=== PATIENT | male | born 1985 | race Caucasian/White ===

== ENCOUNTER 2017-05-23 18:27 | Outpatient (CLI) | payer SELFPAY | END 2017-05-23 18:28 | disposition EMS.NT | LOC: EMS 18:27 | PROVIDERS: ATTEND Surgery | DX: R50.9 Fever, unspecified (principal) ==

== ENCOUNTER 2017-05-23 20:57 | Emergency (ER) | payer SELFPAY ==
[2017-05-23] MEDS ORDERED: SODIUM CHLORIDE 0.9% 1,000 ML IV ONE (21:44)
[2017-05-23 21:57] LABS: BASOPHILS % (AUTO) 0.2 %; HCT - HEMATOCRIT 45.1 % (42.0-52.0); HGB - HEMOGLOBIN 15.3 g/dL (14.0-18.0); LYMPHOCYTES # (AUTO) 0.4 10^3/uL (1.5-3.5); LYMPHOCYTES % (AUTO) 2.3 %; MEAN CORPUSCULAR HEMOGLOBIN 27.9 pg (27.0-31.0); MEAN CORPUSCULAR HGB CONC 33.8 g/dL (32.0-36.0); MEAN CORPUSCULAR VOLUME 82.4 fL (80.0-94.0); MONOCYTES # (AUTO) 0.6 10^3/uL (0.0-1.0); MONOCYTES % (AUTO) 3.7 %; NEUTROPHILS # (AUTO) 14.7 10^3/uL (1.5-6.6); NEUTROPHILS % (AUTO) 93.8 %; RED BLOOD COUNT 5.47 10^6/uL (4.70-6.10); RED CELL DISTRIBUTION WIDTH 12.7 % (12.0-15.0); UNCORRECTED WHITE BLOOD COUNT 15.7 x10^3/uL; WHITE BLOOD COUNT 15.7 x10^3/uL (4.8-10.8)
[2017-05-23 22:05] LABS: BILIRUBIN,URINE NEGATIVE (NEGATIVE); PH,URINE 5.5 PH (5.0-7.5)
[2017-05-23 22:07] LABS: UA CHARGE (STRIP ONLY) YES; UR CULTURE IF IND NOT INDICATED
[2017-05-23 22:13] LABS: CALCIUM 9.4 mg/dL (8.5-10.3); CREATININE 1.1 mg/dL (0.6-1.2); POTASSIUM 3.7 mmol/L (3.5-5.0)
[2017-05-23 22:30] VITALS: BP 120/70
--- NOTE | 2017-05-23 22:39 | ED Physician Documentation ---
History of Present Illness - Stated complaint Stated Complaint: OVER HEATED - Chief complaint Chief Complaint: General - History obtained from History obtained from: Patient, Family - History of Present Illness Timing: Today - Additonal information Additional information: Patient is a 31 year old male with no significant past medical history who is presenting to the emergency department for heat exhaustion. 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 patient states that he tried to stay hydrated but he became overheated. Patient came inside out of the sun but persisted to be overheated with temperatures above 100 F. Patient complained of mild nausea and generalized weakness. Review of Systems Constitutional: reports: Fever, Myalgias, Fatigue. denies: Chills Eyes: denies: Loss of vision, Decreased vision Ears: denies: Ear pain, Drainage/discharge Nose: denies: Rhinorrhea / runny nose, Congestion Throat: denies: Sore throat Cardiac: denies: Chest pain / pressure, Palpitations Respiratory: denies: Cough GI: reports: Nausea. denies: Vomiting, Constipation, Diarrhea : denies: Dysuria, Unable to Void Skin: denies: Rash, Lesions Musculoskeletal: reports: Back pain. denies: Extremity pain, Joint pain Neurologic: reports: Generalized weakness. denies: Focal weakness, Numbness, Difficulty speaking, Syncope, Seizure, Head injury, LOC Psychiatric: denies: Depressed Immunocompromised: denies: Immunocompromised PD PAST MEDICAL HISTORY - Past Medical History Past Medical History: No - Past Surgical History Past Surgical History: No - Allergies Allergies/Adverse Reactions: Allergies Allergy/AdvReac Type Severity Reaction Status Date / Time No Known Drug Allergies Allergy Verified 05/23/17 21:02 - Social History Does the pt smoke?: No Smoking Status: Never smoker Does the pt drink ETOH?: No Does the pt have substance abuse?: No PD ED PE NORMAL - Vitals Vital signs reviewed: Yes - General General: Alert and oriented X 3, Well developed/nourished - HEENT HEENT: Atraumatic, PERRL - Neck Neck: Supple, no meningeal sign - Cardiac Cardiac: No murmur - Respiratory Respiratory: No respiratory distress, Clear bilaterally - Abdomen Abdomen: Soft, Non tender, Non distended - Derm Derm: Normal color, No rash - Extremities Extremities: No deformity, No tenderness to palpate, No edema, No calf tenderness / cord - Neuro Neuro: Alert and oriented X 3, No motor deficit, No sensory deficit, Normal speech - Psych Psych: Normal mood, Normal affect PD ED PE EXPANDED - HEENT HEENT: Dry mucous membranes - Cardiac Cardiac: Tachy Results - Vitals Vitals: Vital Signs - 24 hr 05/23/17 05/23/17 21:00 22:30 Temperature 37.6 C H 37.4 C Heart Rate 106 H 97 Respiratory 17 19 Rate Blood Pressure 144/76 H 120/70 O2 Saturation 99 100 Oxygen O2 Source Room air - Labs Labs: Laboratory Tests 05/23/17 05/23/17 05/23/17 21:15 21:50 21:50 WBC 15.7 H RBC 5.47 Hgb 15.3 Hct 45.1 MCV 82.4 MCH 27.9 MCHC 33.8 RDW 12.7 Plt Count 219 MPV 8.0 Neut # 14.7 H Lymph # 0.4 L [place] # 0.6 Eos # 0.0 Baso # 0.0 Absolute Nucleated RBC 0.01 Nucleated RBCs 0.0 Manual Slide Review Indicated WBC Morphology NORMAL APPEARANCE Platelet Estimate NORMAL (130-450,000) Platelet Morphology NORMAL APPEARANCE RBC Morph Micro Appear NORMAL APPEARANCE Sodium 133 L Potassium 3.7 Chloride 97 L Carbon Dioxide 25 Anion Gap 11.0 BUN 18 Creatinine 1.1 Estimated GFR (MDRD) 79 L Glucose 118 H Calcium 9.4 Total Creatine Kinase 102 Urine Color YELLOW Urine Clarity CLEAR Urine pH 5.5 Ur Specific [place] 1.010 Urine Protein NEGATIVE Urine Glucose (UA) NEGATIVE Urine Ketones 15 H Urine Occult Blood NEGATIVE Urine Nitrite NEGATIVE Urine Bilirubin NEGATIVE Urine Urobilinogen 0.2 (NORMAL) Ur Leukocyte Esterase NEGATIVE Ur Microscopic Review NOT INDICATED Urine Culture Comments NOT INDICATED PD MEDICAL DECISION MAKING - ED course Complexity details: reviewed results, re-evaluated patient, considered differential, d/w patient, d/w family ED course: Patient was seen and examined at bedside. IV access was gained and labs were drawn. Patient was treated with a fluid bolus. patient's labs revealed mild dehydration but patient responded well to IV fluids. Patient's tachycardia resolved and patient was feeling much better. patient required no further work up and was stable for discharge with outpatient follow up. Departure - Departure Disposition: 01 Home, Self Care Clinical Impression: Dehydration Condition: Good Instructions: ED Dehydration Follow-Up: primary,care provider [Other] Comments: Your symptoms today are being caused by dehydration. It is important that you stay well hydrated with water and electrolyte solutions. You should also avoid the heat at mid day. You may return to the emergency department at any time for new, worsening or uncontrollable symptoms. Discharge Date/Time: 05/23/17 22:50
[2017-05-23 22:40] LABS: PLATELET ESTIMATE, MANUAL NORMAL (130-450,000) (NORMAL); PLATELET MORPHOLOGY NORMAL APPEARANCE (NORMAL); WBC MORPHOLOGY (MULTIPLE) NORMAL APPEARANCE (NORMAL)
== END 2017-05-23 22:50 | disposition home or self-care (01) ==
LOC: ED 20:57
DX: E86.0 Dehydration (principal)
CPT/HCPCS: 36415; 80048; 81001; 81003; 82550; 85025; 87086; 96360; 99283